=== PATIENT | male | born 2000 | race Two or more races ===

== ENCOUNTER 2024-03-09 05:57 | Emergency (ER) | payer OTHER, SELFPAY ==
[2024-03-09 06:04] VITALS: PULSE 82; BMI 21.1
[2024-03-09 06:08] VITALS: BP 117/78; PULSE 64; RESP 17; TEMP 36.6; O2SAT 99
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
[2024-03-09] MEDS: Fluorescein Sodium STRIP 1 STRIP EYE-BOTH (07:08)
[2024-03-09] MEDS: Tetracaine HCl/PF 0.5% Oph Sol 4 ML DROPS 3 DROP EYE-BOTH (07:08)
[2024-03-09] MEDS: Erythromycin Base 0.5% Oph Oin 1 GM TUBE 1 CM EYE-BOTH (07:38)
[2024-03-09 07:47] VITALS: BP 105/57; PULSE 68; RESP 16; TEMP 36.4; O2SAT 96
== END 2024-03-09 07:48 | disposition home or self-care (01) ==
PROVIDERS: Emergency Provider Emergency Medicine
DX: S05.02XA Injury of conjunctiva and corneal abrasion without foreign body, left eye, initial encounter (principal); X58.XXXA Exposure to other specified factors, initial encounter; H10.9 Unspecified conjunctivitis; Y93.89 Activity, other specified; Y92.9 Unspecified place or not applicable; Y99.9 Unspecified external cause status
CPT/HCPCS: 99283; 99284

== ENCOUNTER 2024-03-18 00:31 | Emergency (ER) | payer OTHER, SELFPAY ==
[2024-03-18 00:36] VITALS: BP 138/86; PULSE 95; O2SAT 99
[2024-03-18 00:40] VITALS: BP 134/67; PULSE 80; RESP 20; TEMP 36.8; O2SAT 98; BMI 21.7
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
[2024-03-18] MEDS: LORazepam 1 MG TABLET 2 MG PO (01:28)
[2024-03-18] MEDS: Tetracaine HCl/PF 0.5% Oph Sol 4 ML DROPS 3 DROP EYE-BOTH (01:29)
[2024-03-18] MEDS: oxyCODONE HCl Immed Release 5 MG TABLET 10 MG PO (02:01)
[2024-03-18] MEDS: Fluorescein Sodium STRIP 1 STRIP EYE-BOTH (02:03)
[2024-03-18] MEDS: Erythromycin Base 0.5% Oph Oin 1 GM TUBE 1 CM EYE-BOTH (02:25)
[2024-03-18 02:33] VITALS: BP 137/69; PULSE 78; RESP 18; TEMP 36.6; O2SAT 98
[2024-03-18 02:44] VITALS: BP 137/69; PULSE 78; RESP 18; TEMP 36.6; O2SAT 98
== END 2024-03-18 02:45 | disposition home or self-care (01) ==
PROVIDERS: Emergency Provider Internal Medicine
DX: H16.133 Photokeratitis, bilateral (principal); H57.89 Other specified disorders of eye and adnexa
CPT/HCPCS: 99283; 99284